=== PATIENT | male | born 1975 | race Caucasian/White ===

== ENCOUNTER 2021-09-16 11:32 | Emergency (ER) | payer OTHER, SELFPAY ==
--- NOTE | ~2021-09-16 | XR_ITS ---
XR chest 2V DATE: 09/16/2021 13:20 INDICATION: Worsening cough TECHNIQUE: 2 views COMPARISON: None FINDINGS: Normal heart size. No hilar or mediastinal enlargement. No pulmonary infiltrate or consolid ation, pleural effusion or pulmonary vascular congestion or pneumothorax is detected. Degenerative change of the thoracic spine. IMPRESSION: No active cardiopulmonary disease Reviewed, dictated and finalized at location A.
[2021-09-16 11:41] VITALS: BP 125/84; PULSE 96; RESP 16; TEMP 36.4; O2SAT 98
--- NOTE | 2021-09-16 13:03 | ED.GENADULT ---
HPI - General Adult General Chief complaint: Upper Respiratory Infection Stated complaint: Cough/Shortness of Breath Source: patient and family Mode of arrival: ambulatory Limitations: no limitations History of Present Illness HPI narrative: Patient presents for evaluation of cough. He states his symptoms started in December of last year although symptoms have worsened in the last week. He has had to urgent care visits and 2 ER visits since 09/11/2021. He had a CXR and CT chest which were negative. COVID was negative. He has taken tessalon and the counter cough medication which do not seem to have helped. Cough is nonproductive. He has SOB during episodes of coughing. No fever, chills, nausea, vomiting, body aches, chest pain. No hx of COVID. He has received COVID vaccination. He does not smoke cigarettes nor does he smoke marijuana. He reports mild sore throat which he attributes to coughing. He also had a strep screen which was negative. His lisinopril was changed to a different antihypertensive without improvement in his cough. No additional complaints or concerns. Related Data Allergies Allergy/AdvReac Type Severity Reaction Status Date / Time diphenhydramine Allergy Rash Verified 09/16/21 12:43 [From Benadryl] Review of Systems Review of Systems: CONSTITUTIONAL: Denies fever, chills, or sweats. EYES: Denies visual changes, redness, or discharge. ENT: Reports mild sore throat which he attributes to coughing. Denies rhinorrhea, congestion, or otalgia. CARDIOVASCULAR: Denies chest pain, palpitations, or edema. RESPIRATORY: Reports nonproductive cough and SOB during episodes of coughing GASTROINTESTINAL: Denies abdominal pain, nausea, vomiting, or diarrhea. GENITOURINARY: Denies dysuria or hematuria. SKIN: Denies rash or itching. MUSCULOSKELETAL: Denies back pain, joint pain, or myalgia. NEUROLOGIC: Denies headache, numbness, dizziness, or weakness. PSYCHIATRIC: Denies anxiety or depression. [facility] Past Medical History Medical History (Updated 09/16/21 @ 13:48 by Augusto Mejia, TIFFANI, ) Diabetes Hypertension Surgical History Surgical History No pertinent past surgical history Family History Family History Mother Diabetes mellitus Social History Social History Smoking status: Never smoker Substance use: never Living arrangements: with family Gender identity (if verbalized by the patient): Male Spiritual care concerns: No Exam Narrative: GENERAL: Well-appearing, well-nourished, and in no acute distress. HEAD: Normocephalic, atraumatic. EYES: PERRLA and EOMI. ENT: Nares clear, no rhinorrhea or epistaxis. Mucous membranes moist. Oropharynx without tonsillar hypertrophy exudate or other lesions. Mild posterior pharyngeal erythema. Bilateral TMs pearly cat nonbulging NECK: Supple. No adenopathy or masses. No carotid bruits or JVD CHEST: Clear to auscultation. No respiratory distress. No wheezes rales or rhonchi HEART: Regular rate and rhythm. No murmur heard. Normal peripheral pulses. ABDOMEN: Soft, nontender, nondistended, normal active bowel sounds. EXTREMITIES: Normal range of motion. No edema. SKIN: Warm, dry, no rash. NEURO: No focal deficits. Alert and oriented x3. PSYCH: Normal mood and affect. Course Course Emergency Course: This is a 46-year-old male who presented with complaints of cough. Influenza, COVID, chest x-ray were all negative. He was advised to follow-up with pulmonology. Will DC with Vanessa. Advise outpatient follow-up and return for worsening symptoms. Patient agreed with plan of care. Level of Care: Express Care Visit Vital Signs Vital signs: Vital Signs Temperature 36.4 C L 09/16/21 11:41 Pulse Rate 96 09/16/21 11:41 Respiratory Rate 16 09/16/21 11:41 Blood
== END 2021-09-16 14:00 | disposition home or self-care (01) ==
PROVIDERS: Emergency Provider Nurse Practitioner
DX: R05.9 Cough, unspecified (principal); Z20.822 Contact with and (suspected) exposure to COVID-19; E11.9 Type 2 diabetes mellitus without complications; I10 Essential (primary) hypertension
CPT/HCPCS: 71046; 87426; 87804; 99213; C9803; G0463

== ENCOUNTER 2023-07-11 11:11 | Emergency (ER) | payer OTHER, SELFPAY ==
--- NOTE | ~2023-07-11 | XR_ITS ---
XR finger 1st LT min 2V 07/11/2023 12:46 INDICATION: Left first finger pain after injury PROCEDURE: 3 views left first finger COMPARISON: No prior studies for comparison. FINDINGS: Fracture, dislocation or subluxation is not identified. The soft tissues appear within norm al limits. No foreign bodies are identified. IMPRESSION: 1: NO ACUTE BONE OR JOINT ABNORMALITY IDENTIFIED. Reviewed, dictated and finalized at location A.
[2023-07-11 11:30] VITALS: BP 139/74; PULSE 100; RESP 20; TEMP 36.7; O2SAT 97
--- NOTE | 2023-07-11 12:10 | ED.GENADULT ---
HPI - General Adult General Chief complaint: Extremity Injury, Upper Stated complaint: Left thumb injury Source: patient Mode of arrival: ambulatory Limitations: no limitations History of Present Illness HPI narrative: Patient presents for evaluation of an injury to left thumb that occurred 3 days ago. He accidentally closed the left thumb in his car door. He now has swelling and pain the affected digit. His nail is black in appearance. His mother is a director of midwifery/staff midwife and tried to drain some blood from what a paronychia. He states his pain is 5/10 in severity, without descriptive quality. He has some numbness at the distal aspect of the left thumb. He is right-hand dominant. Date of last tetanus unknown. He is diabetic and states his blood sugars usually are in the 200s. He has tried taking ibuprofen for his pain, which seems to help. Related Data Home Medications Medication Instructions Recorded Confirmed atorvastatin 40 mg tablet mg 07/11/23 dapagliflozin propanediol 10 mg mg 07/11/23 tablet (Farxiga) insulin aspart U-100 100 unit/mL subcut 07/11/23 (3 mL) subcutaneous pen (Novolog FlexPen U-100 Insulin aspart) insulin degludec 200 unit/mL (3 unit subcut 07/11/23 mL) subcutaneous pen (Tresiba FlexTouch U-200 insulin) losartan 25 mg tablet mg 07/11/23 metformin 500 mg tablet,extended mg PO 07/11/23 release 24 hr Allergies Allergy/AdvReac Type Severity Reaction Status Date / Time diphenhydramine Allergy Rash Verified 07/11/23 11:39 [From Abigail] Review of Systems Review of Systems: CONSTITUTIONAL: Denies fever, chills, or sweats. EYES: Denies visual changes, redness, or discharge. ENT: Denies rhinorrhea, congestion, sore throat, or otalgia. CARDIOVASCULAR: Denies chest pain, palpitations, or edema. RESPIRATORY: Denies cough or dyspnea. GASTROINTESTINAL: Denies abdominal pain, nausea, vomiting, or diarrhea. GENITOURINARY: Denies dysuria or hematuria. SKIN: Reports dark discoloration to the left thumb nail plate MUSCULOSKELETAL: Reports pain in left thumb. Denies back pain NEUROLOGIC: Denies headache, numbness, dizziness, or weakness. PSYCHIATRIC: Denies anxiety or depression. [facility] Past Medical History Medical History Diabetes Hypertension Surgical History Surgical History No pertinent past surgical history Family History Family History Mother Diabetes mellitus Social History Social History Smoking status: Never smoker Substance use: never Living arrangements: with family Gender identity (if verbalized by the patient): Male Spiritual care concerns: No Exam Narrative: GENERAL: Well-appearing, well-nourished, and in no acute distress. HEAD: Normocephalic, atraumatic. EYES: PERRLA and EOMI. ENT: Nares clear, no rhinorrhea or epistaxis. Mucous membranes moist. Oropharynx without tonsillar hypertrophy exudate or other lesions. Bilateral TMs pearly cat nonbulging NECK: Supple. No adenopathy or masses. No carotid bruits or JVD CHEST: Clear to auscultation. No respiratory distress. No wheezes rales or rhonchi HEART: Regular rate and rhythm. No murmur heard. Normal peripheral pulses. ABDOMEN: Soft, nontender, nondistended, normal active bowel sounds. EXTREMITIES: Normal range of motion. There is soft tissue swelling and tenderness in the distal phalanx of the left thumb SKIN: There is black discoloration noted to the nail plate of the left thumb with a small amount of swelling in the soft tissue at the base of the nailplate of the left thumb NEURO: No focal deficits. Alert and oriented x3. PSYCH: Normal mood and affect. Course Course Emergency Course: This is a 48-year-old male presented for evaluation of a
[2023-07-11] MEDS: TETANUS,DIPHTHERIA,AC PERTUSSIS ADULT (0.5 ML) BOOSTRIX IM (12:15)
[2023-07-11] MEDS: LIDOCAINE HCL 1% LOCAL INJ 2 ML AMPUL 6 ML INFILTRATE (13:35)
== END 2023-07-11 13:46 | disposition home or self-care (01) ==
PROVIDERS: Emergency Provider Nurse Practitioner
DX: S60.112A Contusion of left thumb with damage to nail, initial encounter (principal); X58.XXXA Exposure to other specified factors, initial encounter; Z23 Encounter for immunization; E11.9 Type 2 diabetes mellitus without complications; I10 Essential (primary) hypertension
CPT/HCPCS: 11740; 73140; 87070; 87075; 87205; 90471; 90715; 99213; G0463

== ENCOUNTER 2023-10-08 11:17 | Emergency (ER) | payer OTHER, SELFPAY ==
[2023-10-08 11:22] VITALS: BP 113/78; PULSE 111; RESP 20; TEMP 36.8; O2SAT 97
--- NOTE | 2023-10-08 11:34 | ED.URI ---
HPI - URI/Sore Throat General Chief Complaint: Upper Respiratory Infection Stated Complaint: cough/sneezing History of Present Illness HPI Narrative: Pt is a 48 y/o male, PMHx significant for IDDM, presents to with 5-6 day hx of URI symptoms, including nasal discharge, sinus pressure, sore throat and ear pressure. He denies fevers or chills. He notes his FSBS has been running higher than usual the past 2 days, reading 345 yesterday and 305 this morning. He administers sliding scale insulin when his FSBS is higher and that has reduced his FSBS adequately. He denies known sick contacts. He has not taken any OTC medications for symptom relief. He denies any additional associated symptoms or modifying factors. Related Data Home Medications Medication Instructions Recorded Confirmed dapagliflozin propanediol 10 mg 10 mg PO DAILY 07/11/23 10/08/23 tablet (Farxiga) insulin aspart U-100 100 unit/mL 1 sliding scale dose subcut TID 07/11/23 10/08/23 (3 mL) subcutaneous pen (Novolog FlexPen U-100 Insulin aspart) losartan 25 mg tablet 25 mg PO DAILY 07/11/23 10/08/23 metformin 500 mg tablet,extended 500 mg PO Q12H 07/11/23 10/08/23 release 24 hr blood-glucose sensor (FreeStyle 10/08/23 10/08/23 Bethany 3 Sensor device) Allergies Allergy/AdvReac Type Severity Reaction Status Date / Time diphenhydramine Allergy Severe Swelling Verified 10/08/23 11:32 [From Benadryl] of Lip/Tongue/Throat Review of Systems Constitutional: Comments: refer to HPI ENT: Comments: refer to HPI Respiratory: Comments: refer to HPI [facility] Past Medical History Medical History Diabetes Hypertension Surgical History Surgical History No pertinent past surgical history Family History Family History Mother Diabetes mellitus Social History Social History Smoking status: Never smoker Substance use: never Living arrangements: with family Gender identity (if verbalized by the patient): Male Spiritual care concerns: No Exam Const: General: healthy appearing, no acute distress and alert Nutritional Appearance: obese Orientation/consciousness: patient oriented x3 Limitations: no limitations HENMT: Head: normal to inspection Ears: external ears normal and TM abnormal (right TM has serous pattern, left TM has purulent effusion) erythematous on the left Face/Nose/Sinus: Normal external nose present and Normal nares present Face and sinus: normal facial exam and sinus tenderness maxillary Mouth: Yes Normal oral and palatal mucosa present and Yes lip normal Teeth and gingiva: dentition normal Throat: posterior oropharynx normal and uvula midline Eyes: Conjunctivae: conjunctivae normal Pupils: Equal, round and reactive pupils present EOM: EOMs intact bilaterally Neck: Neck: normal visual inspection, no lymphadenopathy and no meningeal signs Chest: Chest palpation & inspection: normal inspection of the chest Resp: Effort & Inspection: normal respiratory effort Auscultation: clear to auscultation bilaterally Cardio: Rate: regular rate (96 at PMI while seated in room) GI: GI Palp: Yes Soft to palpation Auscultation: normal bowel sounds Skin: General skin exam: normal color Rashes: no rashes Wounds: no wounds Neuro: General: patient oriented x3, moves all extremities, no meningeal signs, no focal motor deficits and CN's II-XI intact bilaterally Cranial nerves: Yes Nystagmus not present Speech: normal speech Extrem: General: normal to inspection Course Course Emergency Course: pt has evidence of LAOM, likely contributing to elevated blood glucose. Pt does have a sliding scale plan for home treatment, will treat with oral abx for AOM, lots of fluids, AP
== END 2023-10-08 11:45 | disposition home or self-care (01) ==
PROVIDERS: Emergency Provider Nurse Practitioner Family
DX: H66.002 Acute suppurative otitis media without spontaneous rupture of ear drum, left ear (principal); E11.9 Type 2 diabetes mellitus without complications; Z79.4 Long term (current) use of insulin; I10 Essential (primary) hypertension
CPT/HCPCS: 99213; G0463

== ENCOUNTER 2024-06-04 09:25 | Emergency (ER) | payer OTHER, SELFPAY ==
--- OUTSIDE RECORDS SUMMARY | 2024-06-04 09:29 | XMS_ITS | Referral Summary ---
Author Organization [facility] Address [address] [place] [id number] Care Team Providers Care Associate Manager Name Role Phone Baldemar Murcia MD Primary Care Provider [phone] Encounters Date Type Department Care Team Description 05/30/2024 8:20 AM HEDIS MANAGER Office Visit [facility] [address] [place] [phone] Babatunde Mcarthur MD Type 2 diabetes mellitus with both eyes affected by mild nonproliferative retinopathy and macular edema, with long-term current use of insulin (HCC) (Primary Dx) 04/18/2024 8:20 AM HEDIS MANAGER Office Visit [facility] [address] [place] [phone] Babatunde Mcarthur MD Type 2 diabetes mellitus with both eyes affected by mild nonproliferative retinopathy and macular edema, with long-term current use of insulin (HCC) (Primary Dx) 03/15/2024 Telephone [facility] [address] [place] [phone] Babatunde Mcarthur MD Pre Cert (2024) 03/14/2024 8:00 AM HEDIS MANAGER Office Visit [facility] [address] [place] [phone] Babatunde Mcarthur MD Type 2 diabetes mellitus with both eyes affected by mild nonproliferative retinopathy and macular edema, with long-term current use of insulin (HCC) (Primary Dx) from Last 3 Months Allergies Active Allergy Reactions Criticality Noted Date Comments Diphenhydramine Other (See comments) Low Reaction: OTHER REACTION, Medications atorvastatin (LIPITOR) 40 mg tablet Take 1 tablet (40 mg total) by mouth payroll specialist before breakfast Active FreeStyle Bethany 3 Sensor device APPLY 1 SENSOR EVERY 14 DAYS 4 Active metFORMIN XR (GLUCOPHAGE XR) 500 mg 24 hr tablet TAKE 1 TABLET BY MOUTH EVERY 12 HOURS WITH MEALS 4 Active losartan (COZAAR) 25 mg tablet Take 1 tablet (25 mg total) by mouth daily Active NovoLOG 100 unit/mL (3 mL) pen for injection Inject 42 Units under the skin 3 times daily Active insulin degludec (TRESIBA) 200 unit/mL (3 mL) pen for injection Inject 0.05 mL (10 Units total) under the skin daily 1 Active Farxiga 10 mg tablet Take 1 tablet (10 mg total) by mouth every morning Active Active Problems Problem Noted Date Diagnosed Date Type 2 diabetes mellitus wit h both eyes affected by mild nonproliferative retinopathy and macular edema, with long-term current use of insulin 11/16/2023 Assessment & Plan (05/30/2024 8:46 AM HEDIS MANAGER): History of Present Illness Chaitanya aDng is a 49 year old male with type 2 diabetes who presents for follow-up of diabetic retinopathy. His blood sugar levels remain high, with occasional fluctuations between lower and higher readings. He is currently managing his diabetes with medication, though specific details of his regimen are not provided. His vision is stable, with the right eye having 20/20 vision and the left eye at 20/25, which is an improvement from 20/30. He experiences minimal or trace swelling in the right eye and some persistent swelling in the left eye, though it is stable compared to the last visit six weeks ago. Physical Exam HEENT: Visual acuity measured as 20/20 in the right eye and 20/25 in the left eye. Minimal or trace swelling in the right eye on OCT; left eye exhibits some swelling but stable. NEUROLOGICAL: Extraocular movements intact. Results DIAGNOSTIC OCT: Minimal or trace edema in the right eye, some edema in the left eye, very stable from previous examination (04/18/2024) Assessment & Plan Diabetic Retinopathy Stable vision with minimal swelling in the right eye and some swelling in the left eye on OCT. Vision is 20/20 in the right eye and 20/25 in the left eye. -Continue current management. -Return for follow-up in 3 months or sooner if any issues arise. Assessment & Plan (04/18/2024 8:24 AM HEDIS MANAGER): With trace ME OU, good vision - options reviewed, including observation vs repeat injection. Agreed to observation today, he will try to improve BG control. Assessment & Plan (03/14/2024 8:39 AM HEDIS MANAGER): Has significant persistent macular edema in the left eye despite 3 injections of Avastin. We discussed the possibility of changing agents, would move onto Eylea. He states his mother has developed floaters following Eylea injection and has some concerns about starting this medication. We discussed that the floaters may be coincidental and not entirely due to using Eylea. We discussed the possibility of using Lucentis instead of Eylea, however I think that Lucentis is very similar to Avastin and may not give as much of a change. After reviewing the risks and benefits of therapy, he would like to move onto Eylea in the left eye. Regarding the right eye there is only a trace amount of macular edema and his vision is quite good, we will observe for now. Assessment & Plan (02/15/2024 8:31 AM CDT): On PRN treatment regimen. Signs of active disease is present in the LEFT Eye, recommend: AVASTIN,LEFT eye(s) today. Risks benefits and alternatives for injecting were reviewed with the patient. They include infection, bleeding, damage to the eye, loss of vision, the need for additional injections, glaucoma, retinal detachment, tears and potential systemic effects. No guarantees were made and the patient wishes to proceed. VA OD good despite mild ME, will observe for now. Assessment & Plan (12/28/2023 9:49 AM CDT): On PRN treatment regimen. Signs of active disease is present in the LEFT Eye, recommend: AVASTIN,LEFT eye(s) today. Risks benefits and alternatives for injecting were reviewed with the patient. They include infection, bleeding, damage to the eye, loss of vision, the need for additional injections, glaucoma, retinal detachment, tears and potential systemic effects. No guarantees were made and the patient wishes to proceed. VA OD good despite mild ME, will observe for now. Assessment & Plan (11/16/2023 9:29 AM CDT): Here today for a 2nd opinion and to continue care for his diabetic retinopathy [facility]. Examination today demonstrates macular edema in both eyes. He underwent cataract surgery in March of 2023. Was on topical drops for appeared of time but has subsequently come off these medications. We discussed that the macular edema may be due to having had cataract surgery however that was roughly 6 months ago. We discussed the possibility of moving forward with fluorescein angiography versus just moving on with intravitreal anti VEGF therapy. He was told that he needs intravitreal injections by his previous doctor and would like to just proceed with those injections instead a fluorescein angiography today. Vision in the right eye is quite good, vision left eye is 20/30. Would recommend treatment for the left eye as this is his worst seeing eye. In addition the vision in the right eye is very good. Discussed with patient the classification of Diabetic Retinopathy and guarded prognosis and progressive nature of the disease. Discussed therapeutic options including observation, laser, surgery and injections of medication into the eye. Risks, benefits and alternatives to therapy discussed with the patient include but not limited to infection, bleeding, damage to the eye and its structures, loss of vision, deformity,double vision, retinal detachment, retinal tears, elevated ocular pressure, pain, systemic complications such as heart attack or stroke,need for other types of eye medications or surgeries, and the potential for numerous repeated treatments with one or a combination of approaches. The FDA status of anti-VEGF medications were reviewed. The patient understood and wished to proceed with Avastin to the LEFT eye AMSLER grid monitoring. Patient is to follow up with us immediately if new changes on AMSLER, flashing lights, floaters, new central or peripheral scotoma, or new central distortion, pain or sudden vision loss occurs. Systemic control, including maintenance of goal blood pressure, blood sugar, and serum lipid levels recommended. Abstainance from smoking/tobacco encouraged I offered him treatment today however he would like to reschedule for next week. Social History Tobacco Use Types Packs/Day Years Used Date Smoking Tobacco: Never Tobacco Cessation:Counseling Given: Not Answered Sex and Gender Information Value Date Recorded Sex Assigned at Not on file Legal Sex Male 9:23 AM HEDIS MANAGER Gender Identity Not on file Sexual Orientation Not on file Last Filed Vital Signs Vital Sign Reading Time Taken Comments Blood Pressure 125/72 01/10/2016 11:00 AM CDT Pulse 101 01/10/2016 11:00 AM CDT Temperature - - Respiratory Rate - - Oxygen Saturation - - Inhaled Oxygen Concentration - - Weight 88.5 kg (195 lb 1.7 oz) 01/06/2016 4:00 P M CDT Height 162.6 cm (5' 4.02 ) 01/06/2016 4:00 PM CD T Body Mass Index 33.47 01/06/2016 4:00 PM CDT Plan of Treatment Not on file Procedures Procedure Name Priority Date/Time Associated Diagnosis Comments OCT, RETINA - OU - BOTH EYES Routine 05/30/2024 8:43 AM HEDIS MANAGER Type 2 diabetes mellitus with both eyes affected by mild nonproliferative retinopathy and macular edema, with long-term current use of insulin ([facility]) OCT, RETINA - OU - BOTH EYES Routine 04/18/2024 8:23 AM HEDIS MANAGER Type 2 diabetes mellitus with both eyes affected by mild nonproliferative retinopathy and macular edema, with long-term current use of insulin ([facility]) INTRAVITREAL INJECTION, PHARMACOLOGIC AGENT - OS - LEFT EYE Routine 03/14/2024 9:11 AM HEDIS MANAGER Type 2 diabetes mellitus with both eyes affected by mild nonproliferative retinopathy and macular edema, with long-term current use of insulin ([facility]) OCT, RETINA - OU - BOTH EYES Routine 03/14/2024 8:34 AM HEDIS MANAGER Type 2 diabetes mellitus with both eyes affected by mild nonproliferative retinopathy and macular edema, with long-term current use of insulin ([facility]) from Last 3 Months Results * OCT, Retina - OU - Both Eyes (05/30/2024 8:43 AM HEDIS MANAGER) Anatomical Region Laterality Modality Head Optical Coherenc e Tomography Narrative 05/30/2024 8:43 AM HEDIS MANAGER Right Eye Quality was good. Scan locations included subfoveal. Progression has been stable. Findings include intraretinal fluid. Left Eye Quality was good. Scan locations included subfoveal. Progression has been stable. Findings include intraretinal fluid. Babatunde Mcarthur MD OPHTH TOMOGRAPHY Final Res ult * OCT, Retina - OU - Both Eyes (04/18/2024 8:23 AM HEDIS MANAGER) Anatomical Region Laterality Modality Head Optical Coherenc e Tomography Narrative 04/18/2024 8:23 AM HEDIS MANAGER Right Eye Quality was good. Scan locations included subfoveal. Progression has been stable. Findings include intraretinal fluid. Left Eye Quality was good. Scan locations included subfoveal. Progression has improved. Findings include intraretinal fluid. Result [facility] Babatunde Mcarthur MD OPHTH TOMOGRAPHY Final Res ult * Intravitreal Injection, Pharmacologic Agent - OS - Left Eye (03/14/2024 9:11 AM HEDIS MANAGER) Anatomical Region Laterality Modality Head Other Narrative 03/14/2024 9:11 AM HEDIS MANAGER Time Out Informed consent was obtained after all risks, benefits and alternatives were explained to the patient. The patient understood, agreed and wished to proceed. Timeout was completed verifying the patient, procedure, laterality and allergies. Anesthesia Subconjunctival anesthesia was used, Topical anesthesia was used. Anesthetic medications included Lidocaine 2%, Proparacaine 0.5%. The anesthesia lot number is [id number]. The expiration date is 06/17/2025. The manufacture of the medication is [employer] Intravitreal Injection, Pharmacologic Agent Preparation included 5% betadine to ocular surface, 10% betadine to eyelids. A 30 gauge needle was used. Pharmaceutical Medication: 2 mg aflibercept syringe 2 mg/0.05 mL Route: intravitreal, Site: Left Eye [facility]: 60846-043-71, Lot: [id number], Expiration date: 04/19/2025, Waste: 0 mL The medication administered today was not supplied by the patient or insurance. The medication administered today was not a sample. Post-op Post injection exam found visual acuity is at least hand motion, no retinal detachment, perfused optic nerve. the patient tolerated the procedure. there were no complications during today's treatment. The patient received written and verbal post procedure care education. Post injection medications were not given. The attending physician was present for the entire procedure. Notes Consented I'VE OS 03/14/24 Result [facility] Babatunde Mcarthur MD OPHTH CLINIC PROCEDURES Fi nal Result * OCT, Retina - OU - Both Eyes (03/14/2024 8:34 AM HEDIS MANAGER) Anatomical Region Laterality Modality Head Optical Coherenc e Tomography Narrative 03/14/2024 8:34 AM HEDIS MANAGER Right Eye Quality was good. Scan locations included subfoveal. Progression has been stable. Findings include intraretinal fluid. Left Eye Quality was good. Scan locations included subfoveal. Progression has been stable. Findings include intraretinal fluid. Babatunde Mcarthur MD OPHTH TOMOGRAPHY Final Res ult from Last 3 Months Insurance [facility] [id number] [employer] Care Teams Associate Manager Relationship Specialty Start Date End Date Baldemar Murcia MD PCP - General Family Practice 02/15/24
--- OUTSIDE RECORDS SUMMARY | 2024-06-04 09:29 | XMS_ITS | Clinical Summary ---
Author Organization [facility] Address [address] [place] [address] Care Team Providers Care Tugger Operator Name Role Phone Emily Stevenson MD Primary Care Provider [phone] Drew Vincent MD Unavailable [phone] Allergies Active Allergy Reactions Criticality Noted Date Comments Diphenhydramine Rash Low 01/22/2016 Medications insulin aspart (NOVOLOG FLEXPEN) 100 UNIT/ML injection (PEN)Indication s:diabetes Inject 42 Units into the skin 3 (three) times daily before meals. Indications: diabetes As directed with each meal Active atorvastatin 40 MG tabletIndicatio ns:cholesterol Take 1 tablet (40 mg total) by mouth every morning. Indications: cholesterol Active Continuous Blood Gluc Sensor (FREESTYLE SAHRON 14 DAY SENSOR) [facility] APPLY SENSOR EVERY 14 DAYS 1 Active TRESIBA FLEXTOUCH 200 UNIT/ML injection (PEN)Indication s:diabetes Inject 10 Units into the skin nightly at bedtime. Indications: diabetes I don't take this medicine a lot pt states 1 Active metFORMIN (GLUCOPHAGE) 1000 MG tabletIndicatio ns:diabetes Take 1 tablet (1,000 mg total) by mouth every morning. Indications: diabetes Active ofloxacin (OCUFLOX) 0.3 % ophthalmic solutionIndicat ions:surgery drop Place 1 drop into the left eye 3 (three) times daily. Indications: surgery drop Active ketorolac (ACULAR LS) 0.4 % ophthalmic solutionIndicat ions:surgery drop Place 1 drop into the left eye 3 (three) times daily. Indications: surgery drop Active prednisoLONE acetate (PRED FORTE) 1 % ophthalmic suspensionIndic ations:surgery drop Place 1 drop into the left eye 3 (three) times daily. Indications: surgery drop Active losartan (COZAAR) 25 MG tabletIndicatio ns:hypertension Take 1 tablet (25 mg total) by mouth every morning. Indications: hypertension Active dapagliflozin (FARXIGA) 10 MG tabletIndicatio ns:diabetes Take 1 tablet (10 mg total) by mouth every morning. Indications: diabetes Active PARoxetine (PAXIL) 10 MG tablet Take 1 tablet (10 mg total) by mouth daily. DIRECTED Active Active Problems Problem Noted Date Diagnosed Date Mixed hyperlipidemia 02/27/2021 Other male erectile dysfunction 02/27/2021 Palpitations 02/27/2021 Mitral regurgitation 02/14/2016 Non-rheumatic tricuspid valve insufficiency 01/19 Pulmonary hypertension ([facility]) 016 Shortness of breath 02/14/2016 Essential hypertension 02/14/2016 Type 2 diabetes mellitus ([facility]) 02/13 Family History Medical History Relation Comments Heart Attack Maternal Grandmother Stroke Maternal Grandmother Asthma Mother Cancer Mother Lung Depression Mother Diabetes Mother Hyperlipidemia Mother CVA Other cardiac Other Relation Status Comments Father Alive Estranged Maternal Grandmother Mother Alive Other Social History Tobacco Use Types Packs/Day Years Used Date Smoking Tobacco: Never Smokeless Tobacco: Never Tobacco Cessation:Counseling Given: Not Answered Alcohol Use Standard Drinks/Week Comments Not Currently 0 (1 standard drink = 0.6 oz pur e alcohol) Sex and Gender Information Value Date Recorded Sex Assigned at Not on file Legal Sex Male 9:15 AM CDT Gender Identity Not on file Sexual Orientation Not on file Last Filed Vital Signs Vital Sign Reading Time Taken Comments Blood Pressure 124/86 04/06/2023 9:36 AM DEPUTY SHERIFF BUILDING GUARD Pulse 94 04/06/2023 9:36 AM DEPUTY SHERIFF BUILDING GUARD Temperature 36.8 C (98.2 F) 04/06/2023 8:34 AM DEPUTY SHERIFF BUILDING GUARD Respiratory Rate 16 04/06/2023 9:36 AM DEPUTY SHERIFF BUILDING GUARD Oxygen Saturation 96% 04/06/2023 9:36 AM DEPUTY SHERIFF BUILDING GUARD Inhaled Oxygen Concentration - - Weight 81 kg (178 lb 9.2 oz) 03/30/2023 12:43 PM DEPUTY SHERIFF BUILDING GUARD Height 166 cm (5' 5.35 ) 03/30/2023 12:43 PM DEPUTY SHERIFF BUILDING GUARD Body Mass Index 29.39 03/30/2023 12:43 PM DEPUTY SHERIFF BUILDING GUARD Plan of Treatment Health Maintenance Due Date Last Done Comments Colorectal Cancer Screening Colonoscopy (10 Years) 1977 Kidney Health Evaluation 1977 Hemoglobin A1C 1977 Lipid Panel 1977 Annual Physical 01/17/1980 Diabetes: Retinopathy Eye Exam 1995 Hepatitis C 1995 DTaP, Tdap and Td Vaccines (1 - Tdap) 01/17/1996 Pneumococcal Vaccine: Pediatrics (0 to 5 Years) and At-Risk Patients (6 to 64 Years) (2 of 2 - PCV) 05/09/2017 05/09/2016 Hepatitis B Vaccines (2 of 3 - Hep B Twinrix 3-dose series) 02/10/2018 01/13/2018 COVID-19 Vaccine (3 - season) 2023 09/25/2020, 08/28/2020 Influenza Adult (#1) 2024 02/05/2021, 01/27/2017, 02/28/2016, Additional history exists Meningococcal B Vaccine Aged Out No l onger eligible based on patient's age to complete this topic Meningococcal Vaccine Aged Out No keri mercedez eligible based on patient's age to complete this topic RSV Immunizations Under 20 Months Aged Out No longer eligible based on patient's age to complete this topic Medical Devices Implanted Type Area Welder Explosion Device Identifier Shelf Expiration Date Model / Serial / Lot Iol Dominik [id number] - [id number] Implanted:Qty: 1 on 03/23/2023 by Chaitanya Meyers MD at [facility] Lens Right: Eye [employer] [id number] 01/18/2026 [id number] / [id number] / NA Description:Verified with ep ic and Dr Meyers Iol Dominik [id number] - [id number] Implanted:Qty: 1 on 04/06/2023 by Chaitanya Meyers MD at [facility] Lens Left: Eye [employer] [id number] 12/02/2026 [id number] / [id number] / NA Description:Verified with ep ic and Dr Meyers Insurance [facility] [facility] Care Teams Tugger Operator Relationship Specialty Start Date End Date Emily Stevenson MD PCP - General FAMILY PRACTICE 02/14/16 Drew Vincent MD [address] [facility] [id number] [place] [address] Physician INTERVENTIONAL CARDIOLOGY 02/26/21
--- OUTSIDE RECORDS SUMMARY | 2024-06-04 09:29 | XMS_ITS | Clinical Summary ---
Author Organization [facility] Address [address] [place] [address] Care Team Providers Care [employer] Infrastructure Consultant Name Role Phone Baldemar Murcia MD Primary Care Provider [phone] Allergies Active Allergy Reactions Criticality Noted Date Comments Diphenhydramine Other (See comments) Low Reaction: OTHER REACTION, Medications atorvastatin (LIPITOR) 40 mg tablet Take 1 tablet (40 mg total) by mouth flag signaler before breakfast Active FreeStyle Bethany 3 Sensor [...] 11/16/2023 Assessment & Plan (05/30/2024 8:46 AM BEAM DYER RECESSED VAT): History of Present Illness Chaitanya Dang is a 49 year old male with [...] arise. Assessment & Plan (04/18/2024 8:24 AM BEAM DYER RECESSED VAT): With trace ME OU, good vision - options reviewed, including observation vs repeat injection. Agreed to observation today, he will try to improve BG control. Assessment & Plan (03/14/2024 8:39 AM BEAM DYER RECESSED VAT): Has significant persistent macular edema in the [...] to continue care for his diabetic retinopathy [facility]. Examination today demonstrates macular edema in both [...] would like to reschedule for next week. Encounters Date Type Department Care Team Description 05/30/2024 8:20 AM BEAM DYER RECESSED VAT Office Visit [facility] Op[facility] [address] [place] [phone] Babatunde Mcarthur MD Type 2 diabetes mellitus with both eyes affected by mild nonproliferative retinopathy and macular edema, with long-term current use of insulin (HCC) (Primary Dx) 04/18/2024 8:20 AM BEAM DYER RECESSED VAT Office Visit [facility] [address] [place] [phone] Babatunde Mcarthur MD Type 2 diabetes mellitus with both eyes affected by mild nonproliferative retinopathy and macular edema, with long-term current use of insulin (HCC) (Primary Dx) 03/15/2024 Telephone [facility] [address] [place] [phone] Babatunde Mcarthur MD Pre Cert (2024) 03/14/2024 8:00 AM BEAM DYER RECESSED VAT Office Visit [facility] [address] [place] [phone] Babatunde Mcarthur MD Type 2 diabetes mellitus with both eyes affected by mild nonproliferative retinopathy and macular edema, with long-term current use of insulin (HCC) (Primary Dx) from Last 3 Months Surgical History Surgery Date Site/Laterality Comments CATARACT EXTRACTION Bilateral CYST REMOVAL Family History Medical History Relation Name Comments Diabetes Father Hypertension Father Blindness Maternal Grandmother Diabetes Mother Hypertension Mother Macular degeneration Mother Relation Name Status Comments Father Maternal Grandmother Mother Social History Tobacco Use Types Packs/Day Years Used Date Smoking Tobacco: Never Tobacco Cessation:Counseling Given: Not Answered Sex and Gender Information Value Date Recorded Sex Assigned at Not on file Legal Sex Male 9:23 AM BEAM DYER RECESSED VAT Gender Identity Not on file Sexual Orientation Not on file Obstetrics History Last Filed Vital Signs Vital Sign Reading [...] 01/06/2016 4:00 PM CDT Plan of Treatment Health Maintenance Due Date Last Done Comments Albumin Creatinine Ratio, Urine 1977 Colon Cancer Screening-Colonoscopy 1977 Depression Screening 1977 Hemoglobin A1C 1977 Hepatitis C Screening 1977 eGFR 1977 Foot Exam 1977 Lipid Panel 1977 Regular Well Visit/Exam 18-64 1995 Pneumococcal vaccine <65 (2 of 2 - PCV) 05/09/2017 05/09/2016 Covid-19 Vaccine (3 - 2023-2 5 season) 2023 09/25/2020, 08/28/2020 Influenza Vaccine (#1) 2023 , 02/05/2021, 01/27/2017, Additional history exists Dilated Eye Exam 05/30/2025 05/30/2024, , 03/14/2024, Additional history exists DTaP/Tdap/Td Vaccine (2 - Td or Tdap) 07/10/2033 07/11/2023 Hepatitis B Screening Completed 01/13/2018 Procedures Procedure Name Priority Date/Time Associated Diagnosis Comments OCT, RETINA - OU - BOTH EYES Routine 05/30/2024 8:43 AM BEAM DYER RECESSED VAT Type 2 diabetes mellitus with both eyes affected by mild nonproliferative retinopathy and macular edema, with long-term current use of insulin (HCC) OCT, RETINA - OU - BOTH EYES Routine 04/18/2024 8:23 AM BEAM DYER RECESSED VAT Type 2 diabetes mellitus with both eyes affected by mild nonproliferative retinopathy and macular edema, with long-term current use of insulin (HCC) INTRAVITREAL INJECTION, PHARMACOLOGIC AGENT - OS - LEFT EYE Routine 03/14/2024 9:11 AM BEAM DYER RECESSED VAT Type 2 diabetes mellitus with both eyes affected by mild nonproliferative retinopathy and macular edema, with long-term current use of insulin (HCC) OCT, RETINA - OU - BOTH EYES Routine 03/14/2024 8:34 AM BEAM DYER RECESSED VAT Type 2 diabetes mellitus with both eyes affected by mild nonproliferative retinopathy and macular edema, with long-term current use of insulin (HCC) from Last 3 Months Results * OCT, Retina - OU - Both Eyes (05/30/2024 8:43 AM BEAM DYER RECESSED VAT) Anatomical Region Laterality Modality Head Optical Coherenc e Tomography Narrative 05/30/2024 8:43 AM BEAM DYER RECESSED VAT Right Eye Quality was good. Scan locations included subfoveal. Progression has been stable. Findings include intraretinal fluid. Left Eye Quality was good. Scan locations included subfoveal. Progression has been stable. Findings include intraretinal fluid. Babatunde Mcarthur MD OPHTH TOMOGRAPHY Final Res ult * OCT, Retina - OU - Both Eyes (04/18/2024 8:23 AM BEAM DYER RECESSED VAT) Anatomical Region Laterality Modality Head Optical Coherenc e Tomography Narrative 04/18/2024 8:23 AM BEAM DYER RECESSED VAT Right Eye Quality was good. Scan locations included subfoveal. Progression has been stable. Findings include intraretinal fluid. Left Eye Quality was good. Scan locations included subfoveal. Progression has improved. Findings include intraretinal fluid. Babatunde Mcarthur MD OPHTH TOMOGRAPHY Final Res ult * Intravitreal Injection, Pharmacologic Agent - OS - Left Eye (03/14/2024 9:11 AM BEAM DYER RECESSED VAT) Anatomical Region Laterality Modality Head Other Narrative 03/14/2024 9:11 AM BEAM DYER RECESSED VAT Time Out Informed consent was obtained after all risks, benefits and alternatives were explained to the patient. The patient understood, agreed and wished to proceed. Timeout was completed verifying the patient, procedure, laterality and allergies. Anesthesia Subconjunctival anesthesia was used, Topical anesthesia was used. Anesthetic medications included Lidocaine 2%, Proparacaine 0.5%. The anesthesia lot number is [id number]. The expiration date is 06/17/2025. The manufacture of the medication is [employer]. Intravitreal Injection, Pharmacologic Agent Preparation included 5% betadine to ocular surface, 10% betadine to eyelids. A 30 gauge needle was used. Pharmaceutical Medication: 2 mg aflibercept syringe 2 mg/0.05 mL Route: intravitreal, Site: Left Eye [facility] [place] 98285-550-28, Lot: [id number], Expiration date: 04/19/2025, Waste: 0 mL The [...] entire procedure. Notes Consented I'VE OS 03/14/24 Babatunde Mcarthur MD OPHTH CLINIC PROCEDURES Fi nal Result * OCT, Retina - OU - Both Eyes (03/14/2024 8:34 AM BEAM DYER RECESSED VAT) Anatomical Region Laterality Modality Head Optical Coherenc e Tomography Narrative 03/14/2024 8:34 AM BEAM DYER RECESSED VAT Right Eye Quality was good. Scan locations included subfoveal. Progression has been stable. Findings include intraretinal fluid. Left Eye Quality was good. Scan locations included subfoveal. Progression has been stable. Findings include intraretinal fluid. Babatunde Mcarthur MD OPHTH TOMOGRAPHY Final Res ult from Last 3 Months [facility] [id number] GENERIC [employer]AY ASSIST Care Teams Microsoft Infrastructure Consultant Relationship Specialty Start Date End Date Baldemar Murcia MD PCP - General Family Practice 02/15/24
--- OUTSIDE RECORDS SUMMARY | 2024-06-04 09:29 | XMS_ITS ---
Author Organization Unknown Medications Medication Instructions Effective Dates (start - stop) Status 3 ML insulin aspart, human 1 00 UNT/ML Pen Injector [NovoLog] - Complet ed losartan potassium 25 MG Ora l Tablet - Completed 3 ML insulin aspart, human 1 00 UNT/ML Pen Injector [NovoLog] - Complet ed dapagliflozin 10 MG Oral Tab let [Farxiga] - Completed 3 ML insulin aspart, human 1 00 UNT/ML Pen Injector [NovoLog] - Complet ed prednisolone acetate 10 MG/M L Ophthalmic Suspension - Completed ketorolac tromethamine 5 MG/ ML Ophthalmic Solution - Completed prednisolone acetate 10 MG/M L Ophthalmic Suspension - Completed dapagliflozin 10 MG Oral Tab let [Farxiga] - Completed - - Compl eted - - Compl eted 3 ML insulin aspart, human 1 00 UNT/ML Pen Injector [NovoLog] - Complet ed 3 ML insulin aspart, human 1 00 UNT/ML Pen Injector [NovoLog] - Complet ed 24 HR metformin hydrochlorid e 500 MG Extended Release Oral Tablet - Compl eted ketorolac tromethamine 5 MG/ ML Ophthalmic Solution - Completed - - Compl eted dapagliflozin 10 MG Oral Tab let [xiga] - Completed prednisolone acetate 10 MG/M L Ophthalmic Suspension - Completed paroxetine hydrochloride 10 MG Oral Tablet - Completed 24 HR metformin hydrochlorid e 500 MG Extended Release Oral Tablet - Compl eted - - Compl eted dapagliflozin 10 MG Oral Tab let [Farxiga] - Completed prednisolone acetate 10 MG/M L Ophthalmic Suspension - Completed 24 HR metformin hydrochlorid e 500 MG Extended Release Oral Tablet - Compl eted dapagliflozin 10 MG Oral Tab let [xi] - Completed prednisolone acetate 10 MG/M L Ophthalmic Suspension - Completed - - Compl eted 3 ML insulin aspart, human 1 00 UNT/ML Pen Injector [NovoLog] - Complet ed 24 HR metformin hydrochlorid e 500 MG Extended Release Oral Tablet - Compl eted 3 ML insulin aspart, human 1 00 UNT/ML Pen Injector [NovoLog] - Complet ed prednisolone acetate 10 MG/M L Ophthalmic Suspension - Completed 3 ML insulin aspart, human 1 00 UNT/ML Pen Injector [NovoLog] - Complet ed - - Compl eted - - Compl eted - - Compl eted cephalexin 500 MG Oral Capsule 2023-07-12 T00:00:00Z - Completed - - Compl eted 3 ML insulin aspart, human 1 00 UNT/ML Pen Injector [NovoLog] - Complet ed 3 ML insulin aspart, human 1 00 UNT/ML Pen Injector [NovoLog] - Complet ed 3 ML insulin aspart, human 1 00 UNT/ML Pen Injector [NovoLog] - Complet ed ketorolac tromethamine 5 MG/ ML Ophthalmic Solution - Completed - - Compl eted ofloxacin 3 MG/ML Ophthalmic Solution - Completed 3 ML insulin aspart, human 1 00 UNT/ML Pen Injector [NovoLog] - Complet ed - - Compl eted 3 ML insulin aspart, human 1 00 UNT/ML Pen Injector [NovoLog] - Complet ed - - Compl eted amoxicillin 875 MG / clavula marcella 125 MG Oral Tablet - Completed ketorolac tromethamine 4 MG/ ML Ophthalmic Solution - Completed ofloxacin 3 MG/ML Ophthalmic Solution - Completed - - Compl eted dapagliflozin 10 MG Oral Tab let [Farxiga] - Completed dapagliflozin 10 MG Oral Tab let [Farxiga] - Completed - - Compl eted Patient Care team information Name Category Status Period Participants - - Proposed period not known -
[2024-06-04 09:31] VITALS: BP 122/76; PULSE 112; RESP 14; TEMP 36.8; O2SAT 97
--- NOTE | 2024-06-04 10:02 | ED.GENADULT ---
HPI - General Adult General Chief complaint: Upper Respiratory Infection Stated complaint: cough, hard to breath Source: patient and family Mode of arrival: ambulatory Limitations: no limitations History of Present Illness HPI narrative: Patient presents for evaluation of a cough. Initially he informed me that his symptoms started within the last year to. However later states that he has had ongoing issues for several years, with an exacerbation that started a few days ago. He has already had a chest x-ray and pulmonary function tests which were normal. He has been taking NyQuil at home. He denies any fever, chills, nausea, vomiting, diarrhea, sore throat, otalgia. He does get some shortness of breath during coughing episodes. No recent sick contacts to his knowledge. Related Data Home Medications ?Medication ?Instructions ?Recorded ?Confirmed ?Last Taken ?Type dapagliflozin propanediol 10 mg 10 mg PO DAILY 07/11/23 10/08/23 Unknown History tablet (Farxiga) insulin aspart U-100 100 unit/mL 1 sliding scale dose subcut TID 07/11/23 10/08/23 Unknown History (3 mL) subcutaneous pen (Novolog FlexPen U-100 Insulin aspart) losartan 25 mg tablet 25 mg PO DAILY 07/11/23 10/08/23 Unknown History metformin 500 mg tablet,extended 500 mg PO Q12H 07/11/23 10/08/23 Unknown History release 24 hr blood-glucose sensor (FreeStyle 10/08/23 10/08/23 Unknown History Bethany 3 Sensor device) semaglutide 0.25 mg or 0.5 mg (2 mg subcut 06/04/24 Unknown History mg/3 mL) subcutaneous pen injector (Ozempic) Allergies Allergy/AdvReac Type Severity Reaction Status Date / Time diphenhydramine (From Allergy Severe Swelling Verified 06/04/24 09:31 Benadryl) of Lip/Tongue/Throat Review of Systems Review of Systems: CONSTITUTIONAL: Denies fever, chills, or sweats. EYES: Denies visual changes, redness, or discharge. ENT: Denies rhinorrhea, congestion, sore throat, or otalgia. CARDIOVASCULAR: Denies chest pain, palpitations, or edema. RESPIRATORY: Reports cough and shortness of breath during coughing episodes. GASTROINTESTINAL: Denies abdominal pain, nausea, vomiting, or diarrhea. GENITOURINARY: Denies dysuria or hematuria. SKIN: Denies rash or itching. MUSCULOSKELETAL: Denies back pain, joint pain, or myalgia. NEUROLOGIC: Denies headache, numbness, dizziness, or weakness. PSYCHIATRIC: Denies anxiety or depression. [facility] Past Medical History Medical History Hyperlipidemia due to dietary fat intake Anxiety Diabetes Hypertension Surgical History Surgical History No pertinent past surgical history Family History Family History Mother Diabetes mellitus Asthma Hypertension Depression Anxiety Father Asthma Diabetes mellitus Hypertension Depression Anxiety Grandparent Asthma Diabetes mellitus Hypertension Depression Anxiety Heart problem Cerebrovascular accident Grandparent Asthma Diabetes mellitus Hypertension Heart problem Depression Anxiety Cerebrovascular accident Social History Social History Smoking status: Never smoker Substance use: never Living arrangements: with family Gender identity (if verbalized by the patient): Male Spiritual care concerns: No Exam Narrative: GENERAL: Well-appearing, well-nourished, and in no acute distress. HEAD: Normocephalic, atraumatic. EYES: PERRLA and EOMI. ENT: Nares clear, no rhinorrhea or epistaxis. Mucous membranes moist. Oropharynx without tonsillar hypertrophy exudate or other lesions. Bilateral TMs pearly cat nonbulging NECK: Supple. No adenopathy or masses. No carotid bruits or JVD CHEST: Clear to auscultation. No respiratory distress. No wheezes rales or rhonchi HEART: Regular rate and rhythm. No murmur heard. Normal peripheral pulses. ABDOMEN: Soft, nontender, nondistended, normal active bowel sounds. EXTREMITIES: Normal range of motion. No edema. SKIN: Warm, dry, no rash. NEURO: No focal deficits. Alert and oriented x3. PSYCH: Normal mood and affect. Course Course Emergency Course: This is a 49-year-old male who presented for evaluation of an exacerbation of coughing with an ongoing multiple year history of this. He has already had a chest x-ray and pulmonary function test. He has no adventitious lung sounds on exam. He may benefit from seeing pulmonology for potential CT imaging. I do not feel it was necessary today as his saturations are normal. His heart rate is mildly elevated but doubt PE as he indicates he has chronic tachycardia and it would be unlikely he would have PE for several years(duration of time in which he has been symptomatic) without decompensation. Will dc with tessalon and albuterol. He should follow up with primary provider and go to the ER for worsening symptoms. Pt and mother in agreement with plan of care. Level of Care: Express Care Visit Vital Signs Vital signs: Vital Signs Temperature 36.8 C 06/04/24 09:31 Pulse Rate 112 H 06/04/24 09:31 Respiratory Rate 14 06/04/24 09:31 Blood Pressure 122/76 06/04/24 09:31 Pulse Oximetry 97 06/04/24 09:31 Oxygen Delivery Room Air 06/04/24 09:31 Temperature 36.8 C 06/04/24 09:31 Pulse Rate 112 H 06/04/24 09:31 Respiratory Rate 14 06/04/24 09:31 Blood Pressure 122/76 06/04/24 09:31 Pulse Oximetry 97 06/04/24 09:31 Oxygen Delivery Room Air 06/04/24 09:31 Medical Decision Making Vital Signs Vital Signs: Vital Signs Temperature 36.8 C 06/04/24 09:31 Pulse Rate 112 H 06/04/24 09:31 Respiratory Rate 14 06/04/24 09:31 Blood Pressure 122/76 06/04/24 09:31 Pulse Oximetry 97 06/04/24 09:31 Oxygen Delivery Room Air 06/04/24 09:31 Temperature 36.8 C 06/04/24 09:31 Pulse Rate 112 H 06/04/24 09:31 Respiratory Rate 14 06/04/24 09:31 Blood Pressure 122/76 06/04/24 09:31 Pulse Oximetry 97 06/04/24 09:31 Oxygen Delivery Room Air 06/04/24 09:31 Discharge Plan Discharge Clinical Impression: Chronic cough Patient Disposition: Home, Self-Care Condition: Stable Instructions: Antibiotic Form, Chronic Cough (ED) Patient Language: [place] Island[place] Prescriptions: New benzonatate 200 mg capsule 200 mg PO TID PRN (Reason: cough) Qty: 30 0RF albuterol sulfate [Ventolin HFA] 90 mcg/actuation HFA aerosol inhaler 2 puff inhalation QID PRN (Reason: shortness of breath or wheezing) Qty: 8.5 0RF No Action losartan 25 mg tablet 25 mg PO DAILY metformin 500 mg tablet extended release 24 hr 500 mg PO Q12H insulin aspart U-100 [Novolog FlexPen U-100 Insulin] 100 unit/mL (3 mL) insulin pen 1 sliding scale dose SUBCUT TID dapagliflozin propanediol [Farxiga] 10 mg tablet 10 mg PO DAILY Ozempic 0.25 mg or 0.5 mg (2 mg/3 mL) pen injector SUBCUT (DME) FreeStyle Bethany 3 Sensor Device MISCELLANEOUS Rx Instructions: APPLY 1 SENSOR EVERY 14 DAYS omeprazole 20 mg capsule,delayed release(DR/EC) See Rx Instructions .ROUTE .COMPLEX Qty: 90 0RF Dose Instruction: TAKE 1 CAPSULE BY MOUTH DAILY Rx Instructions: TAKE 1 CAPSULE BY MOUTH DAILY Follow-up/Referrals: Baldemar Murcia MD [Primary Care Provider] - Time of Disposition: 10:02
== END 2024-06-04 10:05 | disposition home or self-care (01) ==
PROVIDERS: Emergency Provider Nurse Practitioner; PCP Family Medicine
DX: R05.3 Chronic cough (principal); I10 Essential (primary) hypertension; E11.9 Type 2 diabetes mellitus without complications; Z79.4 Long term (current) use of insulin; Z79.84 Long term (current) use of oral hypoglycemic drugs; E78.5 Hyperlipidemia, unspecified
CPT/HCPCS: 99213; G0463

== ENCOUNTER 2024-07-04 07:53 | Outpatient (CLI) | payer OTHER, SELFPAY ==
--- NOTE | ~2024-07-04 | US_ITS ---
Limited Abdominal Sonogram: Real-time sonographic imaging of the right upper quadrant was performed. Clinical History: Diabetes Findings: The liver appears echogenic, with no evidence of mass lesion or bile duct dilatation. Main portal vein demonstrates normal direction of flow. The gallbladder is well distended, and demonstrat es several small layering gallstones. The common bile duct measures 5 mm. The visualized pancreas, a lionel, and IVC are unremarkable. Right kidney unremarkable, measuring 9.6 cm in length. Impression: Diffuse fatty infiltration of liver. Cholelithiasis. Reviewed, dictated and finalized at location M. Impression: Diffuse fatty infiltration of liver. Cholelithiasis.
== END 2024-07-04 07:54 | disposition home or self-care (01) ==
LOC: MICIMG 07:54
PROVIDERS: PCP Family Medicine; Visit Provider Family Medicine
DX: Z00.00 Encounter for general adult medical examination without abnormal findings (principal); K76.0 Fatty (change of) liver, not elsewhere classified; K80.20 Calculus of gallbladder without cholecystitis without obstruction; E11.9 Type 2 diabetes mellitus without complications; M25.561 Pain in right knee; I10 Essential (primary) hypertension
CPT/HCPCS: 73562; 76705